=== PATIENT | male | born 1990 | race Caucasian/White ===

== ENCOUNTER 2016-10-15 23:10 | Emergency (ER) | payer SELFPAY ==
[2016-10-16 05:49] LABS: RED BLOOD COUNT 5.81 M/UL (4.20-5.50); WHITE BLOOD COUNT 10.8 K/UL (4.5-11.0)
[2016-10-16 06:08] LABS: BUN/CREATININE RATIO 12 (0-10)
== END 2016-10-16 07:47 | disposition home or self-care (01) ==
LOC: ER1 23:10
PROVIDERS: Specialist/Technologist Athletic Trainer
DX: K52.9 Noninfective gastroenteritis and colitis, unspecified (principal)
CPT/HCPCS: 36415; 80053; 81001; 85025; 96374; 99284; J2405